=== PATIENT | male | born 1960 | race Caucasian/White ===

== ENCOUNTER 2018-10-30 13:11 | Emergency (ER) | payer MEDICARE, MEDICAID ==
[2018-10-30 13:24] VITALS: BMI 23.7
--- NOTE | 2018-10-30 13:31 | C.PDOC ---
History Of Present Illness 58yo male, history of lymphoma (in remission for 20 years), left AKA, diabetes, comes to ER reporting right paralumbar back pain and left sided chest pain. Patient states he was recently diagnosed with influenza and has been taking t amiflu as well as a Zpack (currently last day of Zpack). He reports he is mainly concerned about the chest pain and describes it as a left sided throbbing pain; he states the pain is only present when he is laying on his right side/back. Patient states the pain is non-radiating and is non-tearing; he also denies any urinary symptoms, bowel/bladder incontinence, saddle anesthesia, weakness or numbness in his lower extremities. Patient also denies any arm pain, abdominal pain, shortness of breath and offers no additional complaints. Time Seen by Provider: 10/30/18 13:21 Chief Complaint (Nursing): Chest Pain History Per: Patient History/Exam Limitations: no limitations Onset/Duration Of Symptoms: Days Current Symptoms Are (Timing): Still Present Past Medical History Reviewed: Historical Data, Nursing Documentation, Vital Signs Vital Signs: Last Vital Signs Temp 97.6 F 10/30/18 13:21 Pulse 57 L 10/30/18 13:21 Resp 16 10/30/18 13:21 BP 136/68 10/30/18 13:21 Pulse Ox 100 10/30/18 13:21 - Medical History PMH: Diabetes Surgical History: Appendectomy Other Surgeries: left AKA Family History: States: No Known Family Hx Denies: SD, CAD - Social History Hx Tobacco Use: Yes Hx Alcohol Use: No Hx Substance Use: No - Immunization History Hx Tetanus Toxoid Vaccination: No Hx Influenza Vaccination: No Hx Pneumococcal Vaccination: No Review Of Systems Except As Marked, All Systems Reviewed And Found Negative. Cardiovascular: Positive for: Chest Pain Respiratory: Negative for: Shortness of Breath Gastrointestinal: Negative for: Vomiting, Abdominal Pain Musculoskeletal: Positive for: Back Pain (right lower back). Negative for: Neck Pain, Arm Pain Neurological: Negative for: Weakness, Numbness Physical Exam - Physical Exam Appears: Non-toxic, No Acute Distress Skin: Normal Color, Warm, Dry Head: Atraumatic, Normacephalic Eye(s): bilateral: Normal Inspection Neck: Normal ROM, Supple Chest: Symmetrical, No Tenderness Cardiovascular: Rhythm Regular Respiratory: Normal Breath Sounds, No Wheezing Gastrointestinal/Abdominal: Normal Exam, Soft, No Tenderness Back: Paraspinal Tenderness (right paralumbar tenderness) Extremity: Normal ROM (right leg FROM), Other (right leg with AKA) Neurological/Psych: Oriented x3, Normal Motor, Normal Sensation ED Course And Treatment - Laboratory Results Result Diagrams: 10/30/18 13:59 10/30/18 13:59 ECG: Interpreted By Me, Viewed By Me ECG Rhythm: Sinus Bradycardia Interpretation Of ECG: No STEMI Rate From EC O2 Sat by Pulse Oximetry: 100 (RA) Pulse Ox Interpretation: Normal Medical Decision Making Medical Decision Mak[place] male, with left sided chest pain and right lower back pain. Patient with recent diagnosis of influenza and currently taking Tamiflu as well as a Zpack. No cauda equina signs. No midline vertebral tenderness. Likely costochondritis, r/o rhabdomylosis Plan: -- Labs -- Urinalysis -- EKG -- CXR -- XR lumbar spine -- Tylenol 650mg PO 1512 labs unremarkable pending XR read pt in NAD 1532 HEART SCORE: Age: 2 RF: 1 Story:0 EK trop: 0 Low risk cp, pt in NAD, f/u outpt w/ cardiology, pt agreeable to plan. no RUQ painL gallstones incidental informed pt of imaging findings regarding prominent pulm arter / hilar area. No widened mediasitinum or mid scapular pain. Disposition - Disposition Referrals: Shaik Vital MD [Staff Provider] - Michael Lara MD [Staff Provider] - Davi Hartman [Staff Provider] - Shade Duong MD [Staff Provider] - Disposition: HOME/ ROUTINE Disposition Time: 15:42 Condition: GOOD Additional Instructions: continue OTC meds. SEE YOUR PRIMARY CARE DOCTOR AND YOUR ONCOLOGIST AND THE DOCTORS WE HAVE RECCOMENDED. ALSO SEE YOUR PHOTO GRAPHICS LIBRARIAN. RETURN IF NOT IMPROVED OR NEW ISSUES. DEONDRE COOMBS, thank you for letting us take care of you today. Your provider was Te Gastelum and you were treated for BACK PAIN. The emergency medical care you received today was directed at your acute symptoms. If you were prescribed any medication, please fill it and take as directed. It may take several days for your symptoms to resolve. Return to the Emergency Department if your symptoms worsen, do not improve, or if you have any other problems. Please contact your doctor or call one of the physicians/clinics you have been referred to that are listed on the Patient Visit Information form that is included in your discharge packet. Bring any paperwork you were given at discharge with you along with any medications you are taking to your follow up visit. Our treatment cannot replace ongoing medical care by a primary care provider outside of the emergency department. Thank you for allowing the [facility] team to be part of your care today. If you had an X-Ray or CT scan: A Radiologist will review the ED reading if any change in treatment is needed we will contact you. If you had a blood, urine, or wound culture: It will take several days for the results, if any change in treatment is needed we will contact you. If you had an STI test: It will take 48 hours for the results. Please call after 1 week if you have not heard back. Instructions: Low Back Pain (DC), Chest Pain (DC) Forms: [employer] (Serbian) - Clinical Impression Clinical Impression: Chest pain, Abnormal finding on lung imaging, Back pain - Scribe Statement The provider has reviewed the documentation as recorded by the Nam Smith Provider Attestation: All medical record entries made by the Nam were at my direction and personally dictated by me. I have reviewed the chart and agree that the record accurately reflects my personal performance of the history, physical exam, medical decision making, and the department course for this patient. I have also personally directed, reviewed, and agree with the discharge instructions and disposition.
[2018-10-30 14:08] LABS: LYMPH # 0.8 K/uL (1.0-4.3); NEUT # 0.7 K/uL (1.8-7.0); NRBC % 0.2 % (0.0-2.0); RED CELL DISTRIBUTION WIDTH 15.6 % (11.5-14.5)
[2018-10-30 14:13] LABS: BASO % 1.3 % (0.0-2.0); EOS % 2.2 % (0.0-4.0); HEMOGLOBIN 13.1 g/dL (12.0-18.0); LYMPH % 47.3 % (20.0-40.0); MEAN CELL VOLUME 78.7 fL (80.0-94.0); MEAN CORPUSCULAR HEMOGLOBIN 25.3 pg (27.0-31.0); MEAN CORPUSCULAR HGB CONC 32.2 g/dL (33.0-37.0); MEAN PLATELET VOLUME 8.8 fL (7.2-11.7); MONO # 0.2 K/uL (0.0-0.8); MONO % 9.6 % (0.0-10.0); NEUT % 39.6 % (50.0-75.0); RBC 5.18 Mil/uL (4.40-5.90)
[2018-10-30 14:15] LABS: WHITE BLOOD COUNT 1.7 K/uL (4.8-10.8)
[2018-10-30 14:20] LABS: ALB/GLOB RATIO 1.4 (1.0-2.1); ALBUMIN 4.1 g/dL (3.5-5.0); BLOOD UREA NITROGEN 18 mg/dL (9-20); CALCIUM 8.6 mg/dl (8.6-10.4); GFR NON-AFRICAN AMERICAN > 60
[2018-10-30 14:29] LABS: ALT/SGPT 48 U/L (21-72); AST/SGOT 47 U/L (17-59)
[2018-10-30 14:51] LABS: URINE BILIRUBIN NEGATIVE (NEGATIVE); URINE BLOOD NEGATIVE (NEGATIVE); URINE CLARITY Clear (Clear); URINE COLOR Yellow (YELLOW); URINE GLUCOSE (UA) NORMAL (Normal); URINE LEUKOCYTE ESTERASE NEG Leu/uL (Negative); URINE PROTEIN NEGATIVE (NEGATIVE); URINE UROBILINOGEN NORMAL mg/dL (0.2-1.0)
--- NOTE | 2018-10-30 15:15 | RAD ---
Date of service: 10/30/2018 HISTORY: cp COMPARISON: No prior. TECHNIQUE: Chest PA and lateral FINDINGS: LUNGS: No definitive consolidation noted. PLEURA: No significant pleural effusion identified. No pneumothorax apparent. CARDIOVASCULAR: No aortic atherosclerotic calcification present. Left hilum left pulmonary artery appear prominent- Probable top-normal heart size. No significant appearing pulmonary venous congestion. OSSEOUS STRUCTURES: Diffuse thoracic spondylosis. VISUALIZED UPPER ABDOMEN: Normal. OTHER FINDINGS: None. IMPRESSION: No pulmonary infiltrates noted. No pneumothorax or [place] pulmonary venous congestion appreciated. Relative prominence of the left hilum/left pulmonary artery -chronicity unknown.. Comparison with any outside chest x-rays 2 years or older recommended. Otherwise consider follow-up elective CT chest imaging without IV contrast. Comments: Study marked for PA review .
--- NOTE | 2018-10-30 15:17 | RAD ---
Date of service: 10/30/2018 PROCEDURE: Radiographs of the Lumbar Spine. HISTORY: back pain COMPARISON: No prior. FINDINGS: There is limited visualization the posterior lumbar spinous processes-even with re-windowing. BONES: Normal alignment. No listhesis. No vertebral body fracture. Diffuse thoraco lumbar mild spondylosis. More moderate at L1-2. General rightward convexity to the thoraco lumbar spine. DISC SPACES: Unremarkable. OTHER FINDINGS: Right upper quadrant faceted gallstones suggested. IMPRESSION: No vertebral body fracture. Thoraco lumbar and diffuse lumbar spondylosis. Trace scoliosis. Right upper quadrant faceted gallstones
[2018-10-30 15:52] VITALS: BP 111/68; PULSE 56; RESP 18; TEMP 98.4
[2018-10-31 00:48] VITALS: O2SAT 100
== END 2018-10-30 15:57 | disposition home or self-care (01) ==
LOC: C.ER 13:11
DX: R07.9 Chest pain, unspecified (principal); M54.5 Low back pain; R91.8 Other nonspecific abnormal finding of lung field

== ENCOUNTER 2018-11-01 11:02 | Outpatient (CLI) | payer MEDICARE, MEDICAID | END 2018-11-01 11:03 | disposition home or self-care (01) | LOC: C.CTH 11:02 | DX: R91.8 Other nonspecific abnormal finding of lung field (principal) ==